=== PATIENT | male | born 1955 | race Caucasian/White ===

== ENCOUNTER 2022-11-17 10:26 | Emergency (ER) | payer MEDICARE, SELFPAY ==
[2022-11-17 10:38] VITALS: BP 146/65; PULSE 69; RESP 16; TEMP 36.6; O2SAT 95
[2022-11-17 10:40] VITALS: BP 146/65; PULSE 69; RESP 16; TEMP 36.6; O2SAT 95
--- NOTE | 2022-11-17 10:59 | ED.URI ---
HPI - URI/Sore Throat General Chief Complaint: Upper Respiratory Infection Stated Complaint: Shortness of Breath,Cough,Congestion Time Seen by Provider: 11/17/22 10:30 Source: patient Mode of arrival: ambulatory Limitations: no limitations History of Present Illness HPI Narrative: 67-year-old male presents to [facility] with complaints of shortness of breath with exertion and mild swelling to lower legs since yesterday. Patient reports that he was outside doing yard work yesterday when he noticed that his shortness of breath was worsening. Patient reports history of heart murmur. Patient reports that mother due to congestive heart failure and father had a MS. patient is a nonsmoker. Patient denies headache, blurred vision, congestion, fever, body aches, chills, nausea, vomiting or diarrhea. Patient reports that he does have intermittent cough. Patient denies chest pains but reports that he does have intermittent dull type pains radiating across his bilateral shoulders at times. MD elicited complaint: cough Onset (ago): day(s) (1) Relieving factors: nothing Associated symptoms: denies other symptoms Treatments prior to arrival: none Related Data Home Medications Medication Instructions Recorded Confirmed atorvastatin 80 mg tablet 80 mg PO HS 11/17/22 11/17/22 bupropion HCl 150 mg 24 hr tablet, 150 mg PO QAM 11/17/22 11/17/22 extended release (Wellbutrin XL) duloxetine 60 mg capsule,delayed 60 mg PO DAILY 11/17/22 11/17/22 release fenofibrate 120 mg tablet 120 mg PO DAILY 11/17/22 11/17/22 lancets (Accu-Chek Fastclix Lancet 11/17/22 11/17/22 Tootie) metformin 500 mg tablet 500 mg PO BID 11/17/22 11/17/22 metoprolol tartrate 75 mg tablet 75 mg PO BID 11/17/22 11/17/22 sitagliptin phosphate 50 mg tablet 50 mg PO DAILY 11/17/22 11/17/22 (Jaretuvmiryam) Allergies Allergy/AdvReac Type Severity Reaction Status Date / Time No Known Allergies Allergy Mild Verified 11/17/22 10:39 Review of Systems Constitutional: Constitutional: Denies chills, Denies fatigue, Denies fever(s) and Denies weakness ENT: Denies dizziness and Denies epistaxis Cardiovascular: Cardiovascular: Denies chest pain, Denies rapid heart rate, Denies radiating jaw, neck or arm pain and Denies slow heart rate Respiratory: Respiratory: Denies chest congestion, Reports cough, Reports dyspnea and Denies wheezing Gastrointestinal: Gastrointestinal: Denies diarrhea, Denies nausea and Denies vomiting Integumentary/Breasts: Skin/Breast: Denies rash Neurologic: Denies dizziness and Denies syncope PMFSH Family History Family History (Updated 11/17/22 @ 11:01 by Sheri Carvajal, DEZ) Father Acute myocardial infarction Mother Congestive heart failure Exam Const: General: healthy appearing and no acute distress Nutritional Appearance: well nourished Orientation/consciousness: patient oriented x3 Limitations: no limitations HENMT: Head: normal to inspection Throat: posterior oropharynx normal and uvula midline Eyes: Conjunctivae: conjunctivae normal Neck: Neck: normal visual inspection Resp: Effort & Inspection: normal respiratory effort and not labored Auscultation: clear to auscultation bilaterally, no crackles, no rales, no rhonchi and no wheezes Other: Patient able to speak in full sentences with no shortness of breath or discomfort noted Cardio: Rate: regular rate Rhythm: regular rhythm Heart sounds: Murmur heart sound present Other: History of heart murmur and sees Dr. Dean at [facility] Skin: General skin exam: normal color Wounds: no wounds Neuro: General: patient oriented x3 Speech: normal speech Psych: Affect: normal affect Attitude: cooperative Course Course Level of Care: Express Care Visit Vital Signs Vital signs: Vital Signs Temperature 36.6 C 11/17/22 10:38 Pulse Rate 69 11/17/22 10:38 Respiratory Rate 16 11/17/22 10:38 Blood Pressure 146/65 H 11/17/22 10:38 Pulse Oxim
--- NOTE | 2022-11-17 11:04 | ECG_ITS ---
Measurements Intervals [place] Rate: 69 P: -6 TX: 146 QRS: 47 QRSD: 115 T: 3 QT: 419 QTc: 452 Interpretive Statements SINUS RHYTHM MODERATE INTRAVENTRICULAR CONDUCTION DELAY [110+ ms QRS DURATION] NONSPECIFIC T-WAVE ABNORMALITY NO PREVIOUS ECG AVAILABLE FOR COMPARISON Electronically Signed On 11-18-2022 14:50:12 CDT by Brynn Brand M.D.
[2022-11-17] MEDS: ASPIRIN 81 MG CHEWABLE TABLET 324 MG PO (11:12)
== END 2022-11-17 11:13 | disposition short-term general hospital (02) ==
PROVIDERS: Emergency Provider Nurse Practitioner Family; PCP Internal Medicine
DX: R06.00 Dyspnea, unspecified (principal); Z20.822 Contact with and (suspected) exposure to COVID-19
CPT/HCPCS: 87426; 93005; 99213; A9270; C9803; G0463